=== PATIENT | male | born 1980 | race Hispanic/Latino ===

== ENCOUNTER 2020-07-25 12:22 | Emergency (ER) | payer SELFPAY ==
[~2020-07-25] VITALS: Ht 167.6 cm; Wt 84.0 kg
[~2020-07-25 12:22] MED LIST: BACTRIM DS1 TAB PO; FLEXERIL OR; LORTAB 5 OR; LORTAB 5/3255 MG PO; LORTAB5 OR; SKELAXIN800 MG OR; TYLENOL PM PO; ULTRAM50 MG OR
[2020-07-25] MEDS ORDERED: AMOXICILLIN500 MG PO ×2 (14:06)
[2020-07-25] MEDS ORDERED: CLARITIN10 M1 PO ×2 (14:06)
[2020-07-25 14:09] VITALS: BP 179/89
== END 2020-07-25 14:22 | disposition home or self-care (01) | DRG 153 ==
LOC: ED 12:22
DX: J02.9 Acute pharyngitis, unspecified (principal); I10 Essential (primary) hypertension

== ENCOUNTER 2020-07-27 14:10 | Emergency (ER) | payer SELFPAY ==
[~2020-07-27] VITALS: Ht 167.6 cm; Wt 75.0 kg
[~2020-07-27 14:10] MED LIST changes: +AMOXICILLIN500 MG PO; +CLARITIN10 M1 PO
[2020-07-27] MEDS ORDERED: LISINOPRIL10 M1 PO (14:30)
[2020-07-27] MEDS ORDERED: LOPRESSOR 550 MG/TAB PO (14:31)
[2020-07-27 16:15] VITALS: BP 116/61
== END 2020-07-27 16:15 | disposition home or self-care (01) | DRG 153 ==
LOC: ED 14:10
DX: J02.9 Acute pharyngitis, unspecified (principal); I10 Essential (primary) hypertension; F17.200 Nicotine dependence, unspecified, uncomplicated; Z20.828 Contact with and (suspected) exposure to other viral communicable diseases

== ENCOUNTER 2020-07-30 11:04 | Emergency (ER) | payer SELFPAY ==
[~2020-07-30] VITALS: Ht 167.6 cm; Wt 90.0 kg
[~2020-07-30 11:04] MED LIST changes: +LISINOPRIL10 M1 PO; +LOPRESSOR 550 MG/TAB PO
[2020-07-30 11:23] LABS: IMMATURE GRANULOCYTES 0.7 % (0.0-5.0); MEAN CELL VOLUME 88.9 fL CALC (80.0-100.0); MEAN CORPUSCULAR HGB 28.5 pG CALC (26.0-32.0); NEUT# 7.24 thou/uL (1.82-7.42); RED BLOOD COUNT 5.06 mill/uL (4.70-6.10); RED CELL DISTRI WIDTH 12.6 % (11.5-15.5)
[2020-07-30 11:24] LABS: HEMOGLOBIN 14.4 g/dl (14.0-18.0)
[2020-07-30 11:36] LABS: ALBUMIN 4.3 g/dL (3.2-5.0); ALKALINE PHOSPHATASE 88 u/l (38-126); ANION GAP 15 (6-22 (CALC)); BILIRUBIN, TOTAL 0.7 mg/dL (0.0-1.4); BUN 19 mg/dL (9-20); BUN/CREATININE RATIO 30 (12-20 (CALC)); CARBON DIOXIDE 26 mmol/l (22-30); CHLORIDE 96 mmol/l (95-108); CREATININE 0.6 mg/dL (0.7-1.3); GFR > 60 ML/MIN (>=60 (CALC)); GFR FOR AFR.AMER. > 60 ML/MIN (>=60 (CALC)); LIPASE 165 u/l (23-300); POTASSIUM 4.3 mmol/l (3.5-5.1); SGOT/AST 36 u/l (17-59); TOTAL PROTEIN 8.2 g/dL (6.3-8.2)
[2020-07-30 11:39] LABS: SODIUM 133 mmol/l (137-146)
[2020-07-30 12:55] LABS: ACT PARTIAL THROMBO TIME 25.3 SECONDS (20.0-32.5); PROTHROMBIN TIME 9.7 SECONDS (9.0-12.5)
[2020-07-30] MEDS ORDERED: DICYCLOMINE20 MG PO (13:34)
[2020-07-30] MEDS ORDERED: ZOFRAN4 MG/TAB PO (13:34)
[2020-07-30 14:00] VITALS: BP 98/58
== END 2020-07-30 14:00 | disposition home or self-care (01) | DRG 392 ==
LOC: ED 11:04
PROVIDERS: Student in an Organized Health Care Education/Training Program
DX: R10.11 Right upper quadrant pain (principal); R06.02 Shortness of breath; K76.89 Other specified diseases of liver; I10 Essential (primary) hypertension; F17.200 Nicotine dependence, unspecified, uncomplicated
CPT/HCPCS: Q9967